=== PATIENT | male | born 1955 | race Hispanic/Latino ===

== ENCOUNTER 2025-02-02 09:26 | Emergency (ER) | payer MEDICARE, OTHER ==
[2025-02-02 09:53] VITALS: PULSE 89; RESP 16; TEMP 98.2; O2SAT 98
[2025-02-02] MEDS ORDERED: OXYBUTYNIN CHLOR5 MG PO (09:53)
== END 2025-02-02 10:16 | disposition home or self-care (01) ==
LOC: ER 09:34
DX: N32.89 Other specified disorders of bladder (principal); R10.30 Lower abdominal pain, unspecified; I10 Essential (primary) hypertension; E78.5 Hyperlipidemia, unspecified; Z85.46 Personal history of malignant neoplasm of prostate
CPT/HCPCS: 99283